=== PATIENT | male | born 1960 | race Caucasian/White ===

== ENCOUNTER → 2024-03-14 | Outpatient (CLI) | payer MEDICARE, SELFPAY ==
--- NOTE | 2024-03-14 07:31 | AAAS_ITS ---
Reason For Study: AAA Screening Aorta Measurements Aorta Doppler Measurements Proximal aorta measures1.83cm x 1.79cm. in cross- Peak systolic flow velocities within the proximal sectional axis. aorta measure 69 cm/sec. Proximal aorta measures1.84cm. in longitudinal Peak systolic flow velocities within the mid aorta axis. measure 86 cm/sec. Mid aorta measures1.61cm x 1.73cm. in cross- Peak systolic flow velocities within the distal sectional axis. aorta measure 95 cm/sec. Mid aorta measures1.63cm. in longitudinal axis. Distal aorta measures1.76cmx 1.97cm. in cross- sectional axis. Distal aorta measures1.78cm. in longitudinal axis. Left Iliac Artery Left iliac artery measures 1.12cm x 1.19 cm. in the cross-sectional axis. Left iliac artery measures 1.14 cm. in the longitudinal axis. Peak systolic velocity in the left iliac artery measures 108 cm/sec. Right Iliac Artery Right iliac artery measures 1.04cm x 1.19 cm. in the cross-sectional axis. Right iliac artery measures 1.04 cm. in the longitudinal axis. Peak systolic velocity in the right iliac artery measures 91 cm/sec. VL/AAA Screening Interpretation Summary Aorta patent, normal caliber Bilateral iliac arteries patent, normal caliber Ordering Physician: Emerson Laboy Referring Physician: Emerson Laboy Performed By: Wendy Steele, RDCS, RVT
== END | disposition home or self-care (01) ==
PROVIDERS: PCP Internal Medicine; Referring Provider Internal Medicine; Visit Provider Internal Medicine
DX: Z13.6 Encounter for screening for cardiovascular disorders (principal)
CPT/HCPCS: 76706